=== PATIENT | male | born 1970 ===

== ENCOUNTER 2017-11-06 06:11 | Inpatient (IN) | payer BC, OTHER ==
[2017-11-06 06:12] VITALS: BMI 39.3
[2017-11-06 06:22] VITALS: RESP 18; O2SAT 95
[2017-11-06] MEDS ORDERED: DiphenhydrAMINE 50 mg/ml Inj IM PRN (06:27)
[2017-11-06] MEDS ORDERED: Magnesium Hydroxide Susp 30 ml UD PO PRN (06:27)
[2017-11-06] MEDS ORDERED: Alum-Mag Hydrox-Simethicone Susp (30 mL) PO PRN (06:27)
--- NOTE | 2017-11-06 07:02 | PCM.BM ---
<Barbara Barney - Last Filed: 11/06/17 07:00> Treatment Plan Problems - Problems identified on initial assessmt Medication nonadherence Date Initiated: 11/06/17 Time Initiated: 07:01 Assessment reference: NA Status: Active Hopelessness/helplessness Date Initiated: 11/06/17 Time Initiated: 07:01 Assessment reference: NA Status: Active Altered sleep pattern Date Initiated: 11/06/17 Time Initiated: 07:02 Assessment reference: NA Status: Active Treatment assets and liabiliti Patient Assests: resourceful, ADL independent, negotiates basic needs, cognitively intact Patient Liabilities: relationship conflicts (recently from ), other - Milieu Protocol Maintain good personal hygiene: daily Remind patient to perform daily oral care , daily Assist patient to perform ADL's, every shift Encourage regular showers Maintain personal safety: every shift Educate patient to report safety concerns to staff, every shift Monitor environment for contraband/sharps Medication safety: Monitor for expected outcome, potential side effects: daily, Assess barriers to learning: daily, Assess readiness for medication education: every shift <Zamzam Albarran - Last Filed: 11/09/17 14:30> Treatment assets and liabiliti Patient Assests: adapts well, cooperative, insightful, motivated, resourceful, self-reliant, ADL independent, physically healthy, negotiates basic needs, good past tx response, financial stabiity, cognitively intact, good interpersonal skills Patient Liabilities: live alone, relationship conflicts Family Contact Family involvement: Patient does not wish Family/SO involvement Family contact: Family has been contacted by patient, Patient declines to allow family contact at present - Outside Agency Agency 1 Care involvment: Following patient during stay, Other Agency contact name: [facility]- [facility] [place] Agency contact number: [phone] - Goals for Treatment Patient goals for treatment: Patient to continue stabilization on 3NP through medication management and group/supportive therapy. Patient to be encouraged to attend groups regularly to promote self-awareness, sobriety, and improve insight , coping skills and self-esteem. Patient to be provided with referral for appropriate level of aftercare to reduce risk of future hospitalizations and ensure safety in the community. Discharge/Continuing Care - Education Needs Education Needs: Patient Medication, Patient Coping Skills, Patient Community resources, Patient Aftercare Safety Plan - Discharge Discharge Criteria: Tolerates medication w/o severe side effects, Free of Suicidal thoughts, Normal sleep pattern, Reduction of target symptoms, Other Discharge to:: Home - Treatment Team Participation Discussed with Family/SO: No Was Patient/Family/SO present at Treatment Team Meeting: Yes <Stefano Handy - Last Filed: 11/10/17 10:24> - Diagnosis (1) Depression Status: Acute Interventions: 11/10/17 10:23 psychotherapy. pharmacotherapy
[2017-11-06 08:10] LABS: HDL CHOLESTEROL 30 MG/DL (30-70)
[2017-11-06 08:22] LABS: LDL CHOLESTEROL 96 mg/dL (0-129)
--- NOTE | 2017-11-06 10:40 | PCM.PSYCH ---
Initial Psychiatric Evaluation - Initial Psychiatric Evaluation Chief Complaint (in patient's own words): I seperated from my so I became depressed Patient's Reaction to Hospitalization: pt requested help History of Present Illness and Precipitating Events: pt with previous diagnosis of bipolar disorder and polysubstance dependence in remission, reportedly compliant with medications and follow up, pt however had increasingly conflict with his and left the house a week ago with the decision to seperate from her, became increasingly depressed with the holidays started to have suicidal thoughts with plan to shoot himself, came to ER seeking help reported poor motivation, poor energy increased sleep, no changes in appetite denied suicidal ideations on the unit denied homicidal ideations , denied perceptual disturbances Current Medications: Active Medications Generic Name Dose Route Start Last Admin Trade Name Freq PRN Reason Stop Dose Admin Acetaminophen 650 mg 11/06/17 06:27 Tylenol 325mg Tab PO Q4 PRN Pain, moderate (4-7) Al Hydrox/Mg Hydrox/Simethicone 30 ml 11/06/17 06:27 Maalox Plus 30 Ml PO Q4 PRN Dyspepsia Bupropion HCl 75 mg 11/06/17 10:15 Wellbutrin PO DAILY SOLIS Diphenhydramine HCl 50 mg 11/06/17 06:27 Benadryl IM Q6 PRN Extrapyramidal S/S Unable PO Diphenhydramine HCl 50 mg 11/06/17 06:31 Benadryl PO HS PRN Sleep Diphenhydramine HCl 50 mg 11/06/17 06:34 Benadryl PO Q6 PRN Extrapyramidal Symptoms Divalproex Sodium 500 mg 11/06/17 17:00 Veronica Cerrato(*Bid*) PO BID SOLIS Haloperidol 5 mg 11/06/17 06:27 Haldol PO Q4 PRN Agitation Haloperidol Lactate 5 mg 11/06/17 06:27 Haldol IM Q4 PRN Agitation, Unable to Take PO Lorazepam 2 mg 11/06/17 06:27 Ativan IM Q4 PRN Anxiety/Agitation,Unable PO Lorazepam 1 mg 11/06/17 06:27 Ativan PO Q4 PRN Anxiety/Agitation Magnesium Hydroxide 30 ml 11/06/17 06:27 Milk Of Magnesia PO HS PRN Constipation Quetiapine Fumarate 300 mg 11/06/17 22:00 Seroquel PO HS SOLIS Past Psychiatric History - Past Psychiatric History Explanation of prior treatment: unspecified number of inpatient hospitalizaons, currently under care of a private psychiatrist History of Abuse: denied History of ETOH/Drug Use: pt reported in remission since 1997 History of Family Illness: grandfather hx of bipolar committed suicide , mother history of depression Pertinent Medical Hx (Current Medical&Sleep Prob, Allergies): Allergies Allergy/AdvReac Type Severity Reaction Status Date / Time No Known Allergies Allergy Verified 11/05/17 23:56 Divalproex Sodium [Divalproex Sodium ER] 500 mg PO TID 11/05/17 QUEtiapine [SEROquel] 300 mg PO HS 11/05/17 Sertraline [Zoloft] 50 mg PO BID 11/05/17 Mental Status Examination - Personal Presentation Personal Presentation: Looks stated age - Affect Affect: Constricted, Depressed - Motor Activity Motor Activity: Psychomotor Retardation - Reliability in Providing Information Reliability in Providing Information: Fair - Speech Speech: Relevant - Mood Mood: Depressed - Formal Thought Process Formal Thought Process: Circumstantial - Hallucinations/Delusions Additional comments: denied perceptual disturbances, non elicited - Obsessions/Compulsions Obsessions: No Compulsions: No - Cognitive Functions Orientation: Person, Place, Situation Sensorium: Alert Judgement: Imparied, as evidence by: Poor judgement Memory: Recent intact, as evidence by: 01/13 object recall - Risk Risk: Suicidal, Diminished functioning - Strength & Assets Inventory Strength & Assets Inventory: Employment history - Limitations Additional comments: poor social supportl DSM 5 DX - DSM 5 DSM 5 Diagnosis: bipolar disorder MRE depressed - Recommended/Plan of Treatment Treatment Recommendations and Plan of Treatment: discussed with pt will discontinue zoloft and start him on wellbutrin 75 mg with plan to uptitrate gradually seroquel 300mg qhs depakote 500mg bid CBT and group therapy Projected ELOS: 7 days Prognosis: guarded Discharge Plan and Discharge Criteria: pt mood stable
--- NOTE | 2017-11-06 15:34 | CP.PCM.CON ---
History of Present Illness - History of Present Illness History of Present Illness: CC: Suicidal ideation This is a 47-year-old male with a past medical history of bipolar disorder and polysubstance abuse, currently in remission, who presented to the ED by ambulance after increasing depression and suicidal ideation as his and him "are splitting up". The patient reports no history of medical problems otherwise. He reports some anxiety. Patient denies chest pain, shortness of breath, fevers, chills, recent illnesses, nausea, vomiting, diarrhea, headache. Rest of ROS as below. All of the patient's and/or family's questions were answered at the bedside. Review of Systems - Hematologic/Lymphatic Additional comments: GENERAL/CONSTITUTIONAL: The patient admits to subjective fever in the ED; however no objective evidence of this. He denies fatigue, weakness, weight gain or weight loss. HEAD, EYES, EARS, NOSE AND THROAT: Eyes - The patient denies pain, redness, loss of vision, double or blurred vision, flashing lights or spots, dryness, Ears, nose, mouth and throat. The patient denies ringing in the ears, loss of hearing, nosebleeds, loss of sense of smell, dry sinuses, sinusitis, post nasal drip, CARDIOVASCULAR: The patient denies chest pain, chest pressure, or irregular heartbeats, RESPIRATORY: The patient denies chronic dry cough, coughing up blood, coughing up mucus, wheezing, or shortness of breath. GASTROINTESTINAL: The patient denies decreased appetite, nausea, vomiting, vomiting blood or coffee ground material, heartburn, regurgitation, diarrhea, constipation, gas, blood in the stools, black tarry stools. GENITOURINARY: The patient denies difficult urination, pain or burning with urination, blood in the urine, frequency, or urgency MUSCULOSKELETAL: The patient denies arm, buttock, thigh or calf cramps. No joint or muscle pain. No muscle weakness or tenderness. No joint swelling, neck pain, back pain. SKIN: The patient denies easy bruising, skin redness, skin rash, hives, sensitivity to sun exposure, tightness, nodules or bumps, hair loss, color changes in the hands or feet with cold. NEUROLOGIC: The patient denies headache, dizziness, fainting, muscle spasm, loss of consciousness, sensitivity or pain in the hands and feet or memory loss. PSYCHIATRIC: The patient admits to anxiety, depression, and thoughts of suicide. ENDOCRINE: The patient denies intolerance to hot or cold temperature, flushing, fingernail changes, increased thirst, or increased salt intake HEMATOLOGIC/LYMPHATIC: The patient denies anemia, bleeding tendency or clotting tendency. ALLERGIC/IMMUNOLOGIC: The patient denies rhinitis, asthma, skin sensitivity, latex allergies or sensitivity. Past Patient History - Past Medical History & Family History Past Medical History?: Yes - Past Social History Smoking Status: Never Smoked - CARDIAC Hx Cardiac Disorders: No Hx Hypertension: No - PULMONARY Hx Tuberculosis: No - NEUROLOGICAL HX Cerebrovascular Accident: No Hx Seizures: No - HEENT Hx HEENT Problems: No - RENAL Hx Chronic Kidney Disease: No - ENDOCRINE/METABOLIC Hx Endocrine Disorders: No - HEMATOLOGICAL/ONCOLOGICAL Hx Cancer: No Hx Human Immunodeficiency Virus (HIV): No - INTEGUMENTARY Hx Dermatological Problems: No - MUSCULOSKELETAL/RHEUMATOLOGICAL Hx Musculoskeletal Disorders: No - GASTROINTESTINAL Hx Gastrointestinal Disorders: No - GENITOURINARY/GYNECOLOGICAL Hx Sexually Transmitted Disorders: No - PSYCHIATRIC Hx Depression: Yes Hx Substance Use: Yes (quit long time ago) - SURGICAL HISTORY Hx Surgeries: Yes Hx Orthopedic Surgery: Yes (Right knee arthroscopy, L rotator cuff surgery 2016) Other/Comment: left rotator cuff repair - ANESTHESIA Hx Anesthesia: Yes Hx Anesthesia Reactions: No Hx Malignant Hyperthermia: No Meds Allergies/Adverse Reactions: Allergies Allergy/AdvReac Type Severity Reaction Status Date / Time No Known Allergies Allergy Verified 11/05/17 23:56 - Medications Medications: Current Medications Acetaminophen (Tylenol 325mg Tab) 650 mg PO Q4 PRN PRN Reason: Pain, moderate (4-7) Al Hydrox/Mg Hydrox/Simethicone (Maalox Plus 30 Ml) 30 ml PO Q4 PRN PRN Reason: Dyspepsia Bupropion HCl (Wellbutrin) 75 mg PO DAILY SOLIS Diphenhydramine HCl (Benadryl) 50 mg IM Q6 PRN PRN Reason: Extrapyramidal S/S Unable PO Diphenhydramine HCl (Benadryl) 50 mg PO HS PRN PRN Reason: Sleep Diphenhydramine HCl (Benadryl) 50 mg PO Q6 PRN PRN Reason: Extrapyramidal Symptoms Divalproex Sodium (Depakote Dr(*Bid*)) 500 mg PO BID SOLIS Haloperidol (Haldol) 5 mg PO Q4 PRN PRN Reason: Agitation Haloperidol Lactate (Haldol) 5 mg IM Q4 PRN PRN Reason: Agitation, Unable to Take PO Lorazepam (Ativan) 2 mg IM Q4 PRN PRN Reason: Anxiety/Agitation,Unable PO Lorazepam (Ativan) 1 mg PO Q4 PRN PRN Reason: Anxiety/Agitation Magnesium Hydroxide (Milk Of Magnesia) 30 ml PO HS PRN PRN Reason: Constipation Quetiapine Fumarate (Seroquel) 300 mg PO HS SOLIS Physical Exam - Additional Findings Additional findings: Physical exam: Constitutional- cooperative, awake, alert Head- NCAT, PERRL Eye- PERRL, EOMI ENT- normal exam, MMM. Neck- normal inspection, supple, no JVD Respiratory- CTAB, no wheezes rales rhonchi Cardiovascular- RRR, +S1, +S2 no MRG GI/Abdominal- normal bowel sounds, soft, no mass, no hsm Skin- warm, dry Extremities Exam- normal capillary refill, normal inspection Neurological Exam- alert, awake, oriented Psych- Depressed mood, flat affect Results - Vital Signs Recent Vital Signs: Last Vital Signs Temp 97.0 F L 11/06/17 09:00 Pulse 81 11/06/17 09:00 Resp 18 11/06/17 09:00 BP 120/86 11/06/17 09:00 Pulse Ox 95 11/06/17 06:16 - Labs Labs: Laboratory Results - last 24 hr 11/06/17 07:56 Triglycerides 100 Cholesterol 163 LDL Cholesterol Direct 96 HDL Cholesterol 30 Assessment & Plan - Assessment and Plan (Free Text) Plan: ASSESSMENT/PLAN 1) Bipolar disorder with depressive episode, suicidal ideation - Wellbutrin 75 mg po daily with plan to uptitrte - Seroquel 300 mg po HS - Depakote 500 mg po BID - CBT/group therapy No other medical problems or further workup for now. Thank you for the consultation
[2017-11-06] MEDS: Divalproex 500 mg DR(BID formulation) PO SCH (17:37)
[2017-11-06] MEDS: QUEtiapine 300 MG TABLET PO SCH (21:04)
[2017-11-07 07:34] LABS: HDL CHOLESTEROL 33 MG/DL (30-70)
[2017-11-07 07:46] LABS: LDL CHOLESTEROL 94 mg/dL (0-129)
[2017-11-07] MEDS: Divalproex 500 mg DR(BID formulation) PO SCH ×2 (09:24→21:06)
--- NOTE | 2017-11-07 16:18 | PCM.PYCHPN ---
Psychiatric Progress Note - Psychiatric Progress Note Patient seen today, length of contact: pt discussed with team evaluated and chart reviewed Patient Chief Complaint: I am loosing my temper and this is out of character for me Problems Identified/Issues Discussed: pt on evaluation reported feeling increasingly anxious, stated that he is worried about loosing his job as he tends to have anger episodes due to his current family situation, pt continues to feel irritable, denied any current suicial or homicidal ideations shows insight into illness Medical Problems: unspecified number of inpatient hospitalizaons, currently under care of a private psychiatrist DSM 5 Symptoms Update: bipolar disorder depressed Medication Change: Yes (start neurontin) Medical Record Reviewed: Yes Mental Status Examination - Cognitive Function Orientation: Person, Place, Situation Memory: Intact Attention: WNL Concentration: WNL Association: WNL Fund of Knowledge: WNL - Mood Mood: Depressed, Anxious - Affect Affect: Constricted, Depressed - Speech Speech: Appropriate - Formal Thought Process Formal Thought Process: Circumstantial Psychotic Thoughts and Behaviors: pt denied any current psychotic symptoms, non elicited - Suicidal Ideation Suicidal Ideation: No - Homicidal Ideation Homicidal Ideation: No Goal/Treatment Plan - Goal/Treatment Plan Progress Toward Problem(s) and Goals/Treatment Plan: discussed with pt will discontinue wellbutrin start neurontin 100mg tid seroquel 300mg qhs depakote 1000mg qhs, follow up on depakote level CBT and group therapy Estimated Date of D/C: 11/10/17
[2017-11-07] MEDS: QUEtiapine 300 MG TABLET PO SCH (21:07)
--- NOTE | 2017-11-08 11:32 | PCM.PYCHPN ---
Psychiatric Progress Note - Psychiatric Progress Note Patient seen today, length of contact: pt discussed with team evaluated and chart reviewed Patient Chief Complaint: I am not suicidal but I am still edgy Problems Identified/Issues Discussed: pt on evaluation reported feeling less depressed, stated he does not have suicidal thoughts as he did on admission pt however continues to feel keyed up and anxious, also reported part ofit r is that he is worried about the rash he has on his right arm, follow up on that was done with hospitalist and possible a fungal infection, medication already prescribed pt attending groups, compliant with medications showing insight into illness denied any perceptual disturbances, denied homicidal ideations Medical Problems: unspecified number of inpatient hospitalizaons, currently under care of a private psychiatrist DSM 5 Symptoms Update: bipolar disorder depressed generalized anxiety disorder Medication Change: No Medical Record Reviewed: Yes Mental Status Examination - Cognitive Function Orientation: Person, Place, Situation Memory: Intact Attention: WNL Concentration: WNL Association: WNL Fund of Knowledge: WNL - Mood Mood: Anxious - Affect Affect: Constricted - Speech Speech: Appropriate - Formal Thought Process Formal Thought Process: Circumstantial Psychotic Thoughts and Behaviors: pt denied any current psychotic symptoms, non elicited - Suicidal Ideation Suicidal Ideation: No - Homicidal Ideation Homicidal Ideation: No Goal/Treatment Plan - Goal/Treatment Plan Need for Continued Stay: Severe depression anxiety, Discharge may exacerbated symptoms Progress Toward Problem(s) and Goals/Treatment Plan: continue neurontin 100mg tid seroquel 300mg qhs depakote 1000mg qhs, follow up on depakote level tomorrow CBT and group therapy Estimated Date of D/C: 11/10/17
[2017-11-08] MEDS: Mycolog II OINT TOP SCH ×2 (16:23→16:29)
[2017-11-08] MEDS: Divalproex 500 mg DR(BID formulation) PO SCH (21:06)
[2017-11-08] MEDS: QUEtiapine 300 MG TABLET PO SCH (21:06)
[2017-11-09] MEDS: Mycolog II OINT TOP SCH ×3 (08:52→17:45)
--- NOTE | 2017-11-09 11:11 | PCM.PYCHPN ---
Psychiatric Progress Note - Psychiatric Progress Note Patient seen today, length of contact: pt discussed with team evaluated and chart reviewed Patient Chief Complaint: I am calmer today Problems Identified/Issues Discussed: pt on evaluation reported feeling less depressed, stated he does not have suicidal thoughts as he did on admission pt also reported feeling less edgy and less irritable, responding well to neurontin, the rash on arm cleared up pt attending groups, compliant with medications showing insight into illness denied any perceptual disturbances, denied homicidal ideations Medical Problems: unspecified number of inpatient hospitalizaons, currently under care of a private psychiatrist DSM 5 Symptoms Update: bipolar disorder depressed Medication Change: No Medical Record Reviewed: Yes Mental Status Examination - Cognitive Function Orientation: Person, Place, Situation Memory: Intact Attention: WNL Concentration: WNL Association: WNL Fund of Knowledge: WNL - Mood Mood: Neutral - Affect Affect: Constricted - Speech Speech: Appropriate - Formal Thought Process Formal Thought Process: Circumstantial Psychotic Thoughts and Behaviors: pt denied any current psychotic symptoms, non elicited - Suicidal Ideation Suicidal Ideation: No - Homicidal Ideation Homicidal Ideation: No Goal/Treatment Plan - Goal/Treatment Plan Need for Continued Stay: Severe depression anxiety, Discharge may exacerbated symptoms Progress Toward Problem(s) and Goals/Treatment Plan: continue neurontin 100mg tid seroquel 300mg qhs depakote 1000mg qhs, follow up on depakote level tomorrow CBT and group therapy Estimated Date of D/C: 11/10/17
[2017-11-09] MEDS: Divalproex 500 mg DR(BID formulation) PO SCH (21:05)
[2017-11-09] MEDS: QUEtiapine 300 MG TABLET PO SCH (21:06)
[2017-11-10 09:12] VITALS: BP 143/86; PULSE 82; TEMP 97.2
[2017-11-10] MEDS: Mycolog II OINT TOP SCH (09:31)
--- NOTE | 2017-11-10 11:18 | PCM.PYCHDC ---
Mental Status Examination - Mental Status Examination Orientation: Person, Place, Situation Memory: Intact Mood: Neutral Affect: Broad Speech: Appropriate Attention: WNL Concentration: WNL Association: WNL Fund of Knowledge: WNL Formal Thought Process: No Impairment Description of patient's judgement and insight: good insight andd fair judgement Psychotic Thoughts and Behaviors: pt denied any current psychotic symptoms, non elicited Suicidal Ideation: No Current Homicidal Ideation?: No Discharge Summary - Discharge Note Reason for Hospitalization: pt with previous diagnosis of bipolar disorder and polysubstance dependence in remission, reportedly compliant with medications and follow up, pt however had increasingly conflict with his and left the house a week ago with the decision to seperate from her, became increasingly depressed with the holidays started to have suicidal thoughts with plan to shoot himself, came to ER seeking help reported poor motivation, poor energy increased sleep, no changes in appetite denied suicidal ideations on the unit denied homicidal ideations , denied perceptual disturbances Laboratory Data: Abnormal Lab Results 11/10/17 08:40 Valproic Acid 59.6 Consultations:: List each consultation separately and include: 1. Reason for request. 2. Findings. 3. Follow-up Consultations: family practice Summary of Hospital Course include:: 1. Description of specific treatment plan utilized for patients during their course of treatmen. 2. Summarize the time- course for resolution of acute symptoms and/or regressed behaviors. 3. Describe issues identified and worked on during hospitalization. 4. Describe medication utilized. 5. Describe medical problems identified and treated. 6. Reassessment of suicide risk Summary of Hospital Course: pt on admission was started on seroquel 300mg qhs, depakot 500mg and it was uptitrated to 1000mg qhs, depakote level was 59 pt was less depressed yet complained of edginess and irritability, neurontin 100mg tid was started with noted improvement in mood and affect no reported side effects of medications CBT, group and supportive therapy provided on discharge pt mental status was stable, pt on discharge denied suicidal or homicidal ideations denied perceptual disturbances follow up arranged for outpatient therapy - Diagnosis (1) Depression Current Visit: Yes Status: Acute - Final Diagnosis (DSM 5) Condition upon Discharge: STABLE Disposition: HOME/ ROUTINE Follow-up Treatment Plan: continue neurontin 100mg tid seroquel 300mg qhs depakote 1000mg qhs, follow up on depakote level tomorrow CBT and group therapy Prescriptions/Medication Reconciliation: Divalproex [Depakote DR(*BID*)] 1,000 mg PO HS 30 Days #60 tcp Gabapentin [Neurontin] 100 mg PO TID 30 Days #90 cap Nystatin/Triamcinolone Acetoni [Mycolog II OINT] 1 applic TOP TID 14 Days #1 tube QUEtiapine [SEROquel] 300 mg PO HS 30 Days #30 tab - Antipsychotic Medications Pt discharged on 2 or more routine antipsychotic medications: No
== END 2017-11-10 11:42 | disposition home or self-care (01) | DRG 881 ==
LOC: H.ER 06:11 → H.PSYCH 06:23
PROVIDERS: ADMIT Psychiatry & Neurology Psychiatry; ATTEND Psychiatry & Neurology Psychiatry
PROC: GZHZZZZ Group Psychotherapy (ICD-10-PCS; principal; 2017-11-06)
PROC: GZ58ZZZ Individual Psychotherapy, Cognitive-Behavioral (ICD-10-PCS; 2017-11-06)
PROC: GZ56ZZZ Individual Psychotherapy, Supportive (ICD-10-PCS; 2017-11-06)
DX: F32.9 Major depressive disorder, single episode, unspecified (principal); R45.851 Suicidal ideations; F41.1 Generalized anxiety disorder; R21 Rash and other nonspecific skin eruption